=== PATIENT | female | born 1985 | race Caucasian/White ===

== ENCOUNTER 2016-12-24 08:14 | Inpatient (IN) | payer BC, OTHER ==
[2016-12-24 08:41] LABS: AMNISURE ROM TEST THERE IS A RUPTURE (NO RUPTURE)
[2016-12-24 08:50] VITALS: BMI 39.1
[2016-12-24] MEDS ORDERED: ANCEF VIAL 1 GM 1 GM in NS 50 ML IV + SPIKE MINIBAG* 50 ML IV PRN ×2 (08:55→09:08)
[2016-12-24 09:00] LABS: URIC ACID 5.5 mg/dL (2.6-6.0)
[2016-12-24] MEDS ORDERED: D5 1/2 NS 1000 ML 1,000 ML IV SCH ×2 (09:00→10:00)
[2016-12-24] MEDS ORDERED: PITOCIN ONE (09:06)
[2016-12-24] MEDS ORDERED: EPHEDRINE SULFATE INJ ONE ×2 (09:06→15:55)
[2016-12-24] MEDS ORDERED: VERSED ONE (09:06)
[2016-12-24] MEDS ORDERED: DURAMORPH ONE (09:09)
[2016-12-24] MEDS ORDERED: LR 1000 ML IV 1,000 ML IV ONE (09:10)
[2016-12-24] MEDS ORDERED: NS 50 ML IV + SPIKE MINIBAG* 50 ML IV ONE (09:11)
[2016-12-24] MEDS ORDERED: BICITRA 30 ML PO ONE (09:11)
[2016-12-24] MEDS ORDERED: ANCEF VIAL 1 GM ONE (09:11)
[2016-12-24 09:16] LABS: BASOPHILS % (AUTO) 0.4 % (0.2-1.0); EOSINOPHILS # (AUTO) 0.1 x10^3/uL (0.0-0.2); EOSINOPHILS % (AUTO) 0.7 % (0.9-2.9); HEMATOCRIT 38.2 % (36.0-47.0); HEMOGLOBIN 12.9 g/dL (12.0-16.0); LYMPHOCYTES # (AUTO) 2.9 X10^3/uL (1.3-2.9); LYMPHOCYTES % (AUTO) 24.4 % (21.0-51.0); MEAN CORPUSCULAR HEMOGLOBIN 27.8 pg (27.0-34.0); MEAN CORPUSCULAR HGB CONC 33.8 g/dL (33.0-35.0); MEAN CORPUSCULAR VOLUME 82.2 fL (80.0-100.0); MEAN PLATELET VOLUME 9.6 fL (7.4-11.0); MONOCYTES # (AUTO) 0.7 x10^3/uL (0.3-0.8); MONOCYTES % (AUTO) 5.7 % (0.0-13.0); NEUTROPHILS % (AUTO) 68.8 % (42.0-75.0); PLATELET COUNT 169 X10^3/uL (150.0-450.0); RED BLOOD COUNT 4.65 X10^6/uL (3.5-5.4); WHITE BLOOD COUNT 11.7 X10^3/uL (3.6-10.0)
[2016-12-24 09:17] LABS: BLOOD UREA NITROGEN 8 mg/dL (7-18); CARBON DIOXIDE 21.9 mmol/L (21-32); CHLORIDE 102 mmol/L (98-107); CREATININE 0.87 mg/dL (0.55-1.02); SODIUM 134 mmol/L (136-145); eGFR BLACK RACES > 60 (>60); eGFR NON BLACK RACES > 60 (>60)
[2016-12-24] MEDS ORDERED: D5 1/2 NS 1L W PITOCIN 20 UNITS/L 20 UNITS/1,000 ML BAG IV ONE (10:57)
[2016-12-24] MEDS ORDERED: NS IRRIGATION 1000 ML 1,000 ML IR ONE (11:00)
[2016-12-24 11:19] LABS: BILIRUBIN,URINE NEGATIVE (NEGATIVE); BLOOD/HEMOGLOBIN,URINE 3+ (NEGATIVE); GLUCOSE, URINE NEGATIVE (NEGATIVE); KETONES,URINE NEGATIVE (NEGATIVE); LEUKOCYTE ESTERASE ,URINE NEGATIVE (NEGATIVE); NITRITES,URINE NEGATIVE (NEGATIVE); PROTEIN,URINE 1+ (NEGATIVE); UROBILINOGEN,URINE NORMAL (NORMAL)
[2016-12-24] MEDS ORDERED: ZOFRAN INJ 4 MG VIAL IVP PRN ×2 (11:30→11:46)
[2016-12-24] MEDS ORDERED: PHENERGAN INJ 25 MG IVP PRN (11:30)
[2016-12-24] MEDS ORDERED: BENADRYL INJ 50 MG VIAL IVP PRN (11:30)
[2016-12-24] MEDS ORDERED: DILAUDID INJ IVP PRN (11:30)
[2016-12-24] MEDS ORDERED: REGLAN INJ 10 MG VIAL IVP PRN ×2 (11:30→11:46)
[2016-12-24 11:35] LABS: APPEARANCE,URINE CLEAR (CLEAR); BACTERIA,URINE TRACE /HPF (NEGATIVE); COLOR,URINE YELLOW (YELLOW); SQUAMOUS EPITHELIAL CELL,UR NEGATIVE /HPF (NEGATIVE)
[2016-12-24] MEDS ORDERED: PERCOCET TAB 5/325 MG PO PRN (11:46)
[2016-12-24] MEDS ORDERED: MYLICON TAB 80 MG CHEW PO PRN (11:46)
[2016-12-24] MEDS ORDERED: NARCAN INJ IVP PRN (11:46)
[2016-12-24] MEDS ORDERED: ADACEL TDaP IM ONE (11:46)
[2016-12-24] MEDS ORDERED: D5 1/2 NS 1000 ML 1,000 ML with PITOCIN 20 UNITS IV SCH ×2 (12:00)
[2016-12-24] MEDS: BENADRYL INJ 50 MG VIAL IVP PRN ×2 (13:15→20:41)
[2016-12-24] MEDS: TORADOL 30 MG VIAL IVP PRN ×2 (13:17→19:21)
[2016-12-24] MEDS: ZANTAC PO SCH (20:41)
[2016-12-25] MEDS: TORADOL 30 MG VIAL IVP PRN (03:26)
[2016-12-25 05:33] LABS: HEMATOCRIT 32.1 % (36.0-47.0); HEMOGLOBIN 10.7 g/dL (12.0-16.0)
[2016-12-25] MEDS ORDERED: BENADRYL CAP/TAB 25 MG PO PRN (07:20)
[2016-12-25] MEDS: PRENATAL PLUS PO SCH (08:35)
[2016-12-25] MEDS: PERCOCET TAB 5/325 MG PO PRN ×3 (08:35→19:46)
[2016-12-25] MEDS: COLACE CAP 100 MG PO SCH ×2 (08:35→22:30)
[2016-12-25] MEDS: ZANTAC PO SCH ×2 (08:35→22:29)
[2016-12-25] MEDS: MOTRIN TAB 800 MG PO PRN ×2 (11:20→22:29)
[2016-12-25] MEDS: BACTROBAN OINT TOP SCH ×2 (15:04→22:30)
[2016-12-25] MEDS: MILK OF MAGNESIA PO SCH ×2 (19:46→22:31)
[2016-12-26] MEDS: PERCOCET TAB 5/325 MG PO PRN ×3 (01:50→09:24)
[2016-12-26] MEDS: BACTROBAN OINT TOP SCH (05:45)
[2016-12-26] MEDS ORDERED: DEPO-PROVERA CONTRACEPTIVE INJ IM ONE (05:53)
[2016-12-26] MEDS: PRENATAL PLUS PO SCH (09:11)
[2016-12-26] MEDS: COLACE CAP 100 MG PO SCH (09:11)
[2016-12-26] MEDS: ZANTAC PO SCH (09:11)
[2016-12-26] MEDS: MILK OF MAGNESIA PO SCH (09:11)
[2016-12-26 11:40] VITALS: BP 136/89
== END 2016-12-26 09:10 | disposition home or self-care (01) | DRG 775 ==
LOC: ER 08:14 → LD 09:06 → MED/SURG 12:02
PROVIDERS: ADMIT Specialist; ATTEND Specialist
PROC: 10D00Z1 Extraction of Products of Conception, Low, Open Approach (ICD-10-PCS; principal; 2016-12-24 10:00)
DX: O24.410 Gestational diabetes mellitus in pregnancy, diet controlled (principal); Z37.0 Single live birth; O60.14X0 Preterm labor third trimester with preterm delivery third trimester, not applicable or unspecified; N85.8 Other specified noninflammatory disorders of uterus; O34.211 Maternal care for low transverse scar from previous cesarean delivery; Z3A.35 35 weeks gestation of pregnancy
CPT/HCPCS: 36415; 80048; 80307; 81001; 83615; 84112; 84450; 84460; 84550; 85014; 85018; 85025; 85384; 85610; 85730; 86592; 86850; 86900; 86901; 96365; 99284; A4216; A4222; S0197; G0434; J0690; J1050; J1200; J1885; J2250; J2405; J2590; J7120